=== PATIENT | male | born 1960 | race African-American/Black ===

== ENCOUNTER 2018-02-14 07:10 | Day surgery (SDC) | payer OTHER ==
[~2018-02-14] VITALS: Ht 175.3 cm; Wt 97.5 kg
[2018-02-14 07:39] VITALS: BP 124/74
[2018-02-14 11:30] VITALS: BP 122/70
== END 2018-02-14 11:35 | disposition home or self-care (01) ==
LOC: GI 07:10 → OR 08:30 → GI 11:35
PROVIDERS: Internal Medicine Gastroenterology
PROC: 0DJD8ZZ Inspection of Lower Intestinal Tract, Via Natural or Artificial Opening Endoscopic (ICD-10-PCS; principal; 2018-02-14 08:30)
DX: K64.8 Other hemorrhoids (principal); K92.1 Melena; R19.7 Diarrhea, unspecified
CPT/HCPCS: 45378; J1200; J1610; J2250; J2310; J3010; J3490